=== PATIENT | female | born 1995 | race Caucasian/White ===

== ENCOUNTER 2016-12-07 13:30 | Emergency (ER) | payer MEDICAID ==
[~2016-12-07] VITALS: Ht 162.6 cm; Wt 86.7 kg
[2016-12-07 13:45] VITALS: BP 128/76
== END 2016-12-07 18:00 | disposition home or self-care (01) ==
LOC: ED 13:30
DX: M54.9 Dorsalgia, unspecified (principal)
CPT/HCPCS: 72072